=== PATIENT | female | born 1960 | race Caucasian/White ===

== ENCOUNTER 2016-11-22 06:59 | Inpatient (IN) | payer OTHER ==
[2016-11-22] MEDS ORDERED: Ondansetron HCl/PF 4 MG/2 ML Vial ONE ×2 (07:02→09:58)
[2016-11-22] MEDS ORDERED: Dicyclomine HCl 20 mg/2 ml Ampule ONE (07:36)
[2016-11-22 07:49] LABS: Hematocrit 49.1 % (36.0-47.0); Mean Platelet Volume 7.4 fL (7.4-10.4); Red Blood Cell (RBC) Count 5.36 mill/uL (4.20-5.40); White Blood Cell (WBC) Count 21.9 thou/uL (4.8-10.8)
[2016-11-22 08:03] LABS: Band 14 % (5-11); Neutrophil 66 % (42-75); Reactive Lymphocytes 3 % (0-10)
[2016-11-22 08:06] LABS: Lactic Acid - Sepsis 3.8 mmol/L (0.5-2.2)
[2016-11-22 08:15] LABS: ALT (SGPT) 66 U/L (8-55); AST (SGOT) 102 U/L (5-34); Alkaline Phosphatase 169 U/L (40-150); Anion Gap 19 mmol/L (10-20); BUN (Urea Nitrogen) 17 mg/dL (9.8-20.1); Bilirubin, Total 0.9 mg/dL (0.2-1.2); Calc. Creatinine Clearance 0 mL/min (70-130); Calcium 10.8 mg/dL (7.8-10.44); Carbon Dioxide 19 mmol/L (22-29); Chloride 101 mmol/L (98-107); Estimated GFR-MDRD 57; Globulin 3.6 g/dL (2.4-3.5); Lipase 26 U/L (8-78)
--- NOTE | 2016-11-22 10:41 | CT ---
CT OF THE ABDOMEN AND PELVIS WITH CONTRAST: Date: 11/22/16 COMPARISON: None. HISTORY: Right lower quadrant abdominal pain and fever. TECHNIQUE: Multiple contiguous axial images were obtained in a CT of the abdomen and pelvis with contrast. Juwan nal reformats were performed. FINDINGS: There are stranding changes surrounding the cecum and in the right lower quadrant of the abdomen. Th ere is inflammatory change of the terminal ileum. There is a structure between the terminal ileum an d cecum which may represent the patient's appendix, which is inflamed and enlarged. No free air is s een in the abdomen or pelvis. There are distended loops of small bowel without definite transition p oint. These measure up to 4.0 cm in size and are most likely secondary to an ileus. The colon is dec ompressed and contains a few scattered diverticula. There are a few focally enlarged areas of colon which are low density and likely represent areas of colon-containing fluid near the splenic flexure. The patient is status post cholecystectomy. The liver, kidneys, adrenal glands, spleen, and pancreas are unremarkable. No abdominal or pelvic lymphadenopathy are seen. The reproductive organs are unre markable. The osseous structures, visualized inferior thorax, and abdominal wall soft tissues are unremarkable . IMPRESSION: 1. There is inflammatory change in the right lower quadrant of the abdomen involving the cecum, ter cruz ileum, and a structure which is likely the appendix. This could be secondary to acute appendic itis. This could also be secondary to Crohn's disease. Correlate with white blood cell count. 2. Diverticulosis. 3. Dilated small bowel loops are likely secondary to a small bowel ileus. POS: [facility]
[2016-11-22] MEDS ORDERED: metroNIDAZOLE 500 MG/100 ML BAG ONE (11:25)
[2016-11-22] MEDS ORDERED: Ondansetron HCl/PF 4 MG/2 ML Vial IVP PRN ×2 (12:20→12:38)
[2016-11-22] MEDS ORDERED: Ondansetron ODT 4 MG TAB PO PRN (12:21)
[2016-11-22] MEDS ORDERED: Sodium Chloride 0.9% 1,000 ML IV SCH (12:30)
[2016-11-22] MEDS ORDERED: Dextrose 5% in Water 1,000 ML IV PRN (12:38)
[2016-11-22] MEDS ORDERED: Acetaminophen 325 MG TAB PO PRN (12:38)
[2016-11-22] MEDS ORDERED: Bisacodyl 5 MG TAB PO PRN (12:38)
[2016-11-22] MEDS ORDERED: Morphine Sulfate 2 MG/ML SYRINGE SLOW IVP PRN (12:38)
[2016-11-22] MEDS ORDERED: HYDROcodone/Acetaminophen 5/325 mg Tablet PO PRN (12:38)
[2016-11-22] MEDS ORDERED: HumaLOG 300 UNITS/3 ML VIAL SC PRN (12:38)
[2016-11-22] MEDS ORDERED: Promethazine HCl 25 MG/ML VIAL IM/IV PRN (12:38)
[2016-11-22] MEDS ORDERED: Dextrose 50% Abboject 50 ML SYRINGE SLOW IVP PRN (12:38)
[2016-11-22] MEDS ORDERED: Calcium Carbonate 500 MG ChewTAB PO PRN (12:38)
[2016-11-22 12:57] VITALS: BMI 39.3
[2016-11-22] MEDS ORDERED: Promethazine HCl 12.5 MG in Sodium Chloride 0.9% 50 ML IVPB PRN (13:00)
[2016-11-22] MEDS: Sodium Chloride 0.9% 1,000 ML IV SCH (13:25)
[2016-11-22] MEDS ORDERED: metroNIDAZOLE 500 MG in Premix Bag 1 BAG IVPB SCH (14:00)
--- NOTE | 2016-11-22 15:49 | CON ---
DATE OF CONSULTATION: 11/22/2016 REQUESTING PHYSICIAN: Kannan Ruiz M.D. HISTORY OF PRESENT ILLNESS: A 56-year-old woman with known history of Crohn's disease who presents with episode of multiple loose stools associated with multiple nonbilious emesis overnight. The patient had some vague abdominal pain associated with above symptoms. She denies any fevers or chills. She denies any hematochezia or melena. She denies any hematemesis. At the time of my evaluation, her pain is nearly resolved. She has not had any further diarrhea since admission. She currently has no nausea, had been taking some antiemetics hours ago. She in fact is hungry and wants something to eat. PAST MEDICAL HISTORY: Significant for Crohn's disease, rheumatoid arthritis, type 2 diabetes mellitus, essential hypertension, obstructive sleep apnea, hypothyroidism, and obesity. PAST SURGICAL HISTORY: Pertinent for multiple arthroplasties of both ankles, feet, right hand and both knees. She also has had a previous laparoscopic cholecystectomy. SOCIAL HISTORY: Patient denies any cigarette smoking, ethanol or illicit drug abuse. FAMILY HISTORY: Notable for heart disease, diabetes mellitus, and breast carcinoma. PREHOSPITALIZATION MEDICATIONS: Includes methotrexate 2.5 mg p.o. q. week, amlodipine 5 mg p.o. daily, levothyroxine 200 mcg p.o. daily, losartan 50 mg p.o. b.i.d., folic acid 2 mg p.o. daily, vitamin D3 5000 units p.o. daily. She is currently on ciprofloxacin and aztreonam intravenously. ALLERGIES: PENICILLIN. REVIEW OF SYSTEMS: Ten-point review of systems essentially unremarkable except for as stated in past medical history and chief complaint. PHYSICAL EXAMINATION: GENERAL: This reveals a 56-year-old normally developed woman who is otherwise coherent and interactive and appears stated age. The patient is alert and oriented x3. She appears to be in no acute distress at the time of my evaluation. VITAL SIGNS: Currently includes blood pressure 138/93, pulse is 96, respiration 20, temperature is 98.5 degrees Fahrenheit, oxygen saturation is 98 % on room air. HEENT: Examination reveals normocephalic and atraumatic. Pupils are equal, round, and reactive to light and accommodation. Extraocular muscles are intact bilaterally. No sclerae icterus is present. HEART: Reveals regular rate and rhythm, no murmurs or gallops auscultated. LUNGS: Clear to auscultation bilaterally. Breathing is regular and unlabored. ABDOMEN: Soft with mild right lower quadrant tenderness to palpation. She clearly has no gross peritoneal signs on examination. Liver and spleen are nonpalpable below costal margins. Bowel sounds in all four quadrants appear normoactive. EXTREMITIES: Reveals 2+ radial and pedal pulses bilaterally. No ankle edema is present. NEUROLOGIC: Examination reveals no focal deficits present. LABORATORY DATA AND IMAGIN. Pertinent laboratory findings today include CBC with 21,900 white blood cells, hemoglobin 16.2, hematocrit is 49.1, and platelet count is 416,000. 2. Metabolic profile: Sodium 135, potassium is 4.4, chloride is 101, bicarbonate 19, BUN 17, creatinine is 1.01, glucose 211. Lactic acid which was initially 3.8 at 0700 hours was 1.4 at 11:37 a.m. 3. Total bilirubin 0.9, AST and ALT marginally elevated at 102 and 66 respectively. 4. C-reactive protein is 7.9. Alkaline phosphatase elevated at 169. Serum lipase was normal at 26. 5. I have personally reviewed the CT scan of the abdomen and pelvis which is remarkable for significant inflammation involving the terminal ileum, cecum and possibly the appendix. There is no free air or significant free fluid noted. IMPRESSION: Acute abdominal pain secondary to colitis. There is no clinical evidence of acute appendicitis in this patient. RECOMMENDATIONS: 1. Continue medical management including antibiotic therapy and possibly anti- inflammatory, Crohn's specific medical therapy. 2. There is no acute surgical indication for this patient at this time. 3. We will initiate a clear liquid diet which will be advanced by morning if the clear liquid diet is well tolerated. Thank you again, Dr. Ruiz for allowing me the opportunity to participate in the care of this patient. KISHA
[2016-11-22] MEDS: Aztreonam 1 GM in Sodium Chloride 0.9% 100 ML IVPB SCH (16:18)
--- NOTE | 2016-11-22 16:56 | HP ---
PRIMARY CARE PHYSICIAN: Fátima Lara M.D. VOCATIONAL TRAINING TEACHER: Vidal Dexter M.D. GASTROINTESTINAL SPECIALIST: Josue Ivan M.D. CHIEF COMPLAINT: Nausea, vomiting, diarrhea, fever. HISTORY OF PRESENT ILLNESS: This is a 56-year-old pleasant lady with a history of Crohn's disease, recently diagnosed 6 weeks back comes into the hospital with episode of nausea, vomiting, fever, and diarrhea. She was apparently well until yesterday afternoon when she had attended a [facility] and s tarted having nausea and vomiting. After that yesterday evening, she had a fever of 101 and during the night, she developed episodes of diarrhea, because nothing resolved she came into the hospital f or further evaluation and treatment. CT scan of the abdomen was done which showed inflammatory rudd ges in the right lower quadrant involving the terminal ileum, cecum and possible inflammation of the appendix. She has been admitted for further evaluation and treatment of that and to rule out appen dicitis. Patient denies any chills, chest pain, shortness of breath. PAST MEDICAL HISTORY: Significant for juvenile rheumatoid arthritis which is progression to adult r heumatoid arthritis, type 2 diabetes, hypertension, sleep apnea, morbid obesity, hypothyroidism, bli nd in the right eye. PAST SURGICAL HISTORY: Significant for multiple synovectomy related to arthritis including right [place] nd, laparoscopic cholecystectomy 2 years ago and ankle surgery and knee surgery. MEDICATIONS: Include methotrexate, Remicade, amlodipine, levothyroxine, losartan, folic acid, vitam in D. ALLERGIES: PENICILLIN and CUPRIMINE. She is also allergic to ARAVA, which gives her ulcers on the hand and she is mildly allergic to METHOTREXATE, so she takes at low dose. She is off the PREDNISON E. SOCIAL HISTORY: She is with no children. 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 She does not smoke and drinks alcohol rarely. FAMILY HISTORY: Negative for diabetes and hypertension. REVIEW OF SYSTEMS: Significant for nausea, vomiting, diarrhea, and fever. Otherwise, no headache, no eye pain, no hearing loss latencies. No cough, no chest pain, no dysuria, no polyuria, no memory or mood changes. No neck pain. PHYSICAL EXAMINATION: VITAL SIGNS: Blood pressure is 105/84, pulse is 94, respirations 20, temperature afebrile. GENERAL: Patient is lying in bed in distress because of the nausea and vomiting. HEENT: Atraumatic, normocephalic. Pupils equally round, react to light. Extraocular movements int act. Mucous membranes moist. NECK: Supple. No JVD. CHEST: Breath sounds. There are no rales or rhonchi. HEART: S1, S2, no murmurs or gallops. ABDOMEN: Soft, tender diffusely, more in the periumbilical area. Bowel sounds are normal, no rigid ity, no guarding. EXTREMITIES: No cyanosis, clubbing or edema. Distal pulses present. NEUROLOGIC: Alert, awake, oriented. No cranial deficits. No sensorimotor deficits. IMAGING: CT scan as mentioned earlier showed inflammatory changes in the right lower quadrant of th e abdomen along the cecum, terminal ileum and stricture which is likely appendix, possibly acute jessica endicitis, also shows diverticulosis and dilated small bowel loops, possibly leading to small bowel ileus. LABORATORY DATA: WBC count is 21, hemoglobin is 16. The patient has neutrophils of 66, bands of 14 , lymphocytes of 10. Sodium is 135, potassium is 4.4, creatinine is 1.01, BUN is 17, lactic acid is 3.8. AST is 102, ALT is 66, alkaline phosphatase is 169. ASSESSMENT AND PLAN: 1. Sepsis secondary to right lower quadrant inflammation, rule out appendicitis. We will do blood cultures, monitor. We will repeat lactic acid. We will treat the patient with Cipro, Flagyl, and Z osyn. 2. Nausea, vomiting, diarrhea, possibly secondary to the inflammation. We will give symptomatic tr eatment with Zofran and Phenergan. We will also check the patient for stool cultures and Clostridiu m difficile. 3. Rheumatoid arthritis, appears to be stable as of now. 4. Crohn's disease. We will consult GI. 5. History of asthma, stable. 6. Ileus, possibly secondary to inflammation. We will monitor the patient closely. 7. Fever with elevated white count, possibly secondary to sepsis. 8. Diabetes. Put the patient on insulin sliding scale. 9. Hypertension. We will do p.r.n. hydralazine. 10. Obesity. She has been counseled. 11. Increased LFTs, possibly secondary to sepsis. We will do ultrasound of the gallbladder anyway to rule out any common bile duct obstruction. 12. Hypothyroidism. We will continue thyroid medication for now. 13. Sequential compression devices for deep venous thrombosis prophylaxis. I will work with Diego falcon and TIESHA and further caring for the patient.
--- NOTE | 2016-11-22 18:17 | ULT ---
ULTRASOUND ABDOMEN COMPLETE: HISTORY: 66-year-old female with elevated liver enzymes, abdominal pain, nausea and emesis. FINDINGS: Liver: Heterogeneously increased echogenicity consistent with fatty liver. Gallbladder: Surgically absent. Common duct: 5 mm Spleen: No splenomegaly. Pancreas: Poorly visualized. Kidneys: No hydronephrosis. Abdominal aorta: No aneurysm. Inferior vena cava: Unremarkable. IMPRESSION: 1. Hepatosteatosis. 2. Status post cholecystectomy. MADISON Duvall POS: [facility]
--- NOTE | 2016-11-22 19:36 | CON ---
DATE OF CONSULTATION: 11/22/2016 REASON FOR CONSULTATION: Diarrhea, vomiting, abdominal pain. HISTORY OF PRESENT ILLNESS: Ms. Morales is a pleasant 56-year-old female, who has had a long history of rheumatoid disease, which has been very difficult to control. She has been on multiple immunosu ppressants as more recently Rituxan. In May of last year, she underwent colorectal cancer screeni ng with a colonoscopy was felt to be normal except for lipoma on the right colon. The appendiceal o rifice, ileocecal valve, and cecum all appeared normal at that time. More recently, she had been ev aluated for worsening lower quadrant pain and had a CAT scan that showed inflammation in the cecal a nd terminal ileum area. Interestingly, she had been in the hospital for similar findings on the CT in 11/2014 as well as gastroenteritis. She had [employer] [facility] obtained for inflammatory carlos alberto l disease that was consistent with ulcerative colitis. She had a colonoscopy, which showed severe i nflammation in the right colon and biopsies showed chronic inflammation, but no evidence of infectio n. Screening for hepatitis C and hepatitis were all negative. In talking with her senior gis analyst, we started her on Remicade. She started that a week and a half ago and she actually had been doing quite well. 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 She came to the emergency room last night, had a white count of 21,000 and was admit megha to the hospital. She had a calcium of 10.8, lactic acid 3.8, AST and ALT of 102 and 66, alkalin e phosphatase 169. C-reactive protein is 7.9. test was negative. She had a CAT scan sandro t showed similar inflammation in the right lower quadrant. I talk to Dr. Juan, the radiologist who has compared to the CAT scan she had in September at [facility] and actually it looks better than then. There is still some inflammation in the right lower quadrant of the abdomen, the cecum and t erminal ileum stricture in the terminal ileum ileocecal valve region. There is no evidence of acute appendicitis and the changes look better than before; however, there is increasing small carlos alberto l dilatation distally that was seen on last exam; this was felt to be ileus or obstruction. REVIEW OF SYSTEMS: Fever of 101, she states yesterday, otherwise negative for rash. Negative for d ysuria. Frequency and urgency negative. Positive for nausea, vomiting, diarrhea without any blood and some diffuse abdominal discomfort. PAST MEDICAL HISTORY: 1. New diagnosis which felt to be Crohn disease. 2. Chronic rheumatoid arthritis. 3. Endocrine disease. 4. Hypothyroidism. 5. 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 She has been off for several months now. 6. Hypertension. 7. Obesity. 8. Pulmonary disease, asthma. PAST SURGICAL HISTORY: Orthopedic surgery, bilateral knee replacements, bilateral ankle surgery, fo ot surgery, right hand surgery, previous cholecystectomy. ALLERGIES: CUPRIMINE (PENICILLAMINE), PENICILLINS. SOCIAL HISTORY: Negative for alcohol, drugs or tobacco. MEDICATIONS AT HOME: Methotrexate, amlodipine, levofloxacin, losartan, folic acid, vitamin D3, and Remicade. PRESENT MEDICATIONS HERE: Tylenol, aztreonam, bisacodyl, Cipro, famotidine, hydralazine, hydrocodon e, insulin sliding scale, levothyroxine, metronidazole, normal saline 100 an hour. PHYSICAL EXAMINATION: VITAL SIGNS: Temperature is 98.5, pulse 96, blood pressure 130/93. She is mildly overweight. GENERAL: She is in no distress. LUNGS: Clear. HEART: Regular rate and rhythm without clicks or murmurs. ABDOMEN: Soft, nontender, without any palpable hepatosplenomegaly. There is mild tenderness in the right lower abdomen. ASSESSMENT: History of Crohn's, recently started on Remicade; now admitted with fever, nausea, vomi ting, diarrhea, and leukocytosis. CAT scan shows appearance improved from the CAT scan in September. This all started abruptly yesterday after eating out at a latter-day function. I suspect this was an ac [place] gastritis. She is on immunosuppressants and does have Crohn's and that is always a concern as w twila. We will continue the antibiotics, IV fluids, and observe her. If she has worsening symptoms, may have to reevaluate by Surgery. I suspect the ileus/obstruction appearance with dilated loops of small bowel with more of an ileus, but again if she has worsening symptoms, she may be reevaluated by General Surgery. Previously she does not have improvement in the clinical course as expected wit h the acute food borne gastroenteritis, then we would need to check for opportunistic infections inc lude TB, CMV, and Entamoeba histolytica and histoplasmosis based on her extensive immunosuppressants in the past.
[2016-11-22] MEDS: Famotidine/PF 20 mg/2ml Vial SLOW IVP SCH (20:32)
[2016-11-22] MEDS: metroNIDAZOLE 500 MG in Premix Bag 1 BAG IVPB SCH (20:32)
[2016-11-23] MEDS: Aztreonam 1 GM in Sodium Chloride 0.9% 100 ML IVPB SCH (00:54)
[2016-11-23] MEDS: Sodium Chloride 0.9% 1,000 ML IV SCH ×4 (00:56→23:31)
[2016-11-23] MEDS: metroNIDAZOLE 500 MG in Premix Bag 1 BAG IVPB SCH ×3 (04:49→21:17)
[2016-11-23] MEDS ORDERED: Levothyroxine Sodium 100 MCG VIAL IVP SCH (06:00)
[2016-11-23] MEDS ORDERED: Levothyroxine Sodium 100 MCG TAB PO SCH (06:00)
[2016-11-23 06:12] LABS: #Basophils 0.1 thou/uL (0.0-0.2); #Eosinphils 0.5 thou/uL (0.0-0.7); #Lymphocytes 2.2 thou/uL (1.20-3.40); #Neutrophils 5.4 thou/uL (1.40-6.50); %Basophils 0.7 % (0.0-1.0); %Lymphocytes 23.4 % (21.0-51.0); Hematocrit 41.8 % (36.0-47.0); Mean Platelet Volume 7.4 fL (7.4-10.4); Red Blood Cell (RBC) Count 4.48 mill/uL (4.20-5.40); White Blood Cell (WBC) Count 9.2 thou/uL (4.8-10.8)
[2016-11-23 06:25] LABS: ALT (SGPT) 38 U/L (8-55); AST (SGOT) 26 U/L (5-34); Alkaline Phosphatase 116 U/L (40-150); Anion Gap 13 mmol/L (10-20); BUN (Urea Nitrogen) 13 mg/dL (9.8-20.1); Bilirubin, Total 0.4 mg/dL (0.2-1.2); Calc. Creatinine Clearance 134 mL/min (70-130); Carbon Dioxide 21 mmol/L (22-29); Chloride 108 mmol/L (98-107); Estimated GFR-MDRD 83; Globulin 2.6 g/dL (2.4-3.5); Protein, Total 5.8 g/dL (6.0-8.3)
[2016-11-23] MEDS: Saccharomyces boulardii 250 MG CAP PO SCH (08:55)
[2016-11-23] MEDS: Cyanocobalamin (Vitamin B-12) 1,000 MCG TAB PO SCH (08:56)
[2016-11-23] MEDS: Losartan Potassium 25 MG TAB PO SCH ×2 (08:56→21:24)
[2016-11-23] MEDS: Famotidine/PF 20 mg/2ml Vial SLOW IVP SCH ×2 (08:58→21:27)
[2016-11-23] MEDS ORDERED: Folic Acid 1 MG TAB PO SCH (09:00)
[2016-11-23] MEDS ORDERED: Non-Formulary Item 1 EACH (Levothyroxine Sodium [Synthroid] 200 MCG) PO SCH (09:00)
[2016-11-23] MEDS ORDERED: Non-Formulary Item 1 EACH (Cyanocobalamin (Vitamin B-12) [Vitamin B12] 2,500 MCG) PO SCH (09:00)
[2016-11-23] MEDS ORDERED: Non-Formulary Item 1 EACH (Cholecalciferol (Vitamin D3) [Vitamin D3] 5,000 UNIT) PO SCH (09:00)
[2016-11-23] MEDS ORDERED: Non-Formulary Item 1 EACH (Losartan Potassium [Losartan Potassium] 50 MG) PO SCH (09:00)
[2016-11-23] MEDS ORDERED: Methotrexate Sodium 2.5 MG TAB PO SCH (09:00)
--- NOTE | 2016-11-23 11:37 | PDOC.PN ---
- Subjective Encounter Start Date: 11/23/16 Encounter Start Time: 07:30 -: old records requested/rev pt feels better, no abdominal pain, has diarrhoea, no fever - Objective MAR Reviewed: Yes Vital Signs & Weight: Vital Signs (12 hours) Temp Pulse Resp BP BP Pulse Ox 11/23/16 08:57 66 121/71 11/23/16 08:00 98.5 F 66 16 97 11/23/16 07:39 98.5 F 66 16 121/71 97 11/23/16 00:00 99 F 82 18 122/72 95 Weight Weight 214 lb 14.4 oz I&O: 11/22/16 11/23/16 11/24/16 06:59 06:59 06:59 Intake Total 1200 600 Balance 1200 600 Result Diagrams: 11/23/16 04:28 11/23/16 04:28 Additional Labs: Accuchecks 11/22/16 21:23 POC Glucose 132 H Phys Exam - Physical Examination Constitutional: NAD HEENT: PERRLA, moist MMs, sclera anicteric Neck: no JVD, supple Respiratory: no wheezing, no rales, no rhonchi Cardiovascular: RRR, no significant murmur, no rub Gastrointestinal: soft, non-tender, no distention, positive bowel sounds Musculoskeletal: no edema, pulses present Neurological: non-focal, normal sensation, moves all 4 limbs Lymphatic: no nodes Psychiatric: normal affect, A&O x 3 Skin: no rash, normal turgor Dx/Plan (1) Abdominal pain Code(s): R10.9 - UNSPECIFIED ABDOMINAL PAIN Status: Resolved (2) Diarrhea Code(s): R19.7 - DIARRHEA, UNSPECIFIED Status: Acute Qualifiers: Diarrhea type: presumed infectious Qualified Code(s): A09 - Infectious gastroenteritis and colitis, unspecified (3) Gastroenteritis Code(s): K52.9 - NONINFECTIVE GASTROENTERITIS AND COLITIS, UNSPECIFIED Status : Acute (4) Ileus Code(s): K56.7 - ILEUS, UNSPECIFIED Status: Acute (5) Lactic acidosis Code(s): E87.2 - ACIDOSIS Status: Acute (6) Leucocytosis Code(s): D72.829 - ELEVATED WHITE BLOOD CELL COUNT, UNSPECIFIED Status: Resolved (7) Nausea & vomiting Code(s): R11.2 - NAUSEA WITH VOMITING, UNSPECIFIED Status: Resolved (8) Sepsis Code(s): A41.9 - SEPSIS, UNSPECIFIED ORGANISM Status: Acute (9) Abnormal LFTs Code(s): R79.89 - OTHER SPECIFIED ABNORMAL FINDINGS OF BLOOD CHEMISTRY Status : Chronic (10) Arthritis, rheumatoid Code(s): M06.9 - RHEUMATOID ARTHRITIS, UNSPECIFIED Status: Chronic (11) Crohn's disease Code(s): K50.90 - CROHN'S DISEASE, UNSPECIFIED, WITHOUT COMPLICATIONS Status: Chronic (12) Diabetes type 2, controlled Code(s): E11.9 - TYPE 2 DIABETES MELLITUS WITHOUT COMPLICATIONS Status: Chronic (13) Hepatic steatosis Code(s): K76.0 - FATTY (CHANGE OF) LIVER, NOT ELSEWHERE CLASSIFIED Status: Chronic (14) Hypertension Code(s): I10 - ESSENTIAL (PRIMARY) HYPERTENSION Status: Chronic (15) Hypothyroidism Code(s): E03.9 - HYPOTHYROIDISM, UNSPECIFIED Status: Chronic (16) Obesity (BMI 30-39.9) Code(s): E66.9 - OBESITY, UNSPECIFIED Status: Chronic - Plan cont current plan of care, continue antibiotics * wbc improved to normal * change to levaquin, DC azactam * continue flagyl * add florastor * will repeat c-diff * spoke with GI and continue current treatment plan * medication reviewed as below * symptomatic treatment. * advance diet Review of Systems - Review of Systems Eyes: negative: Pain, Vision Change, Conjunctivae Inflammation, Eyelid Inflammation, Redness, Other ENT: negative: Ear Pain, Ear Discharge, Nose Pain, Nose Discharge, Nose Congestion, Mouth Pain, Mouth Swelling, Throat Pain, Throat Swelling, Other Respiratory: negative: Cough, Dry, Shortness of Breath, Hemoptysis, SOB with Excertion, Pleuritic Pain, Sputum, Wheezing Cardiovascular: negative: Chest Pain, Palpitations, Orthopnea, Paroxysmal Noc. Dyspnea, Edema, Light Headedness, Other Gastrointestinal: Diarrhea. negative: Nausea, Vomiting, Abdominal Pain, Constipation, Melena, Hematochezia, Other Genitourinary: negative: Dysuria, Frequency, Incontinence, Hematuria, Retention , Other Musculoskeletal: negative: Neck Pain, Shoulder Pain, Arm Pain, Back Pain, Hand Pain, Leg Pain, Foot Pain, Other Skin: negative: Rash, Lesions, Mal, Bruising, Other - Medications/Allergies Allergies/Adverse Reactions: Allergies Allergy/AdvReac Type Severity Reaction Status Date / Time penicillamine Allergy Severe "throat Verified 11/22/16 12:56 [From Cuprimine] swelled, hives" Penicillins Allergy Severe "face Verified 11/22/16 12:56 swelled up" Medications: Current Medications Acetaminophen (Tylenol) 650 mg PO Q4H PRN PRN Reason: Headache/Fever or Pain Hydrocodone Bitart/Acetaminophen (Ignacio 5/325) 1 tab PO Q4H PRN PRN Reason: Moderate Pain (4-6) Last Admin: 11/23/16 00:56 Dose: 1 tab Amlodipine Besylate (Norvasc) 5 mg PO QAM [facility] Last Admin: 11/23/16 08:57 Dose: 5 mg Bisacodyl (Dulcolax) 10 mg PO DAILYPRN PRN PRN Reason: Constipation Calcium Carbonate (Tums) 1,000 mg PO Q4H PRN PRN Reason: Heartburn or Indigestion Cholecalciferol (Vitamin D3) 5,000 units PO DAILY [facility] Last Admin: 11/23/16 08:56 Dose: 5,000 units Cyanocobalamin (Vitamin B-12) 2,500 mcg PO DAILY [facility] Last Admin: 11/23/16 08:56 Dose: 2,500 mcg Dextrose/Water (Dextrose 50%) 25 gm SLOW IVP PRN PRN PRN Reason: Hypoglycemia Famotidine (Pepcid) 20 mg SLOW IVP Q12HR [facility] Last Admin: 11/23/16 08:58 Dose: 20 mg Folic Acid (Folvite) 1 mg PO DAILY [facility] Last Admin: 11/23/16 08:58 Dose: Not Given Glucagon (Glucagon) 1 mg IM PRN PRN PRN Reason: Hypoglycemia Hydralazine HCl (Apresoline) 10 mg SLOW IVP Q4H PRN PRN Reason: Systolic BP > 180 Ciprofloxacin/Dextrose 400 mg/ (Device) 200 mls @ 200 mls/hr IVPB 0200,1400 [facility] Last Admin: 11/23/16 00:54 Dose: 200 mls Dextrose/Water (D5w) 1,000 mls @ 0 mls/hr IV .Q0M PRN; As Directed PRN Reason: Hypoglycemia Sodium Chloride (Normal Saline 0.9%) 1,000 mls @ 100 mls/hr IV .Q10H [facility] Stop: 11/24/16 12:39 Last Admin: 11/23/16 08:57 Dose: Not Given Promethazine HCl 12.5 mg/ (Sodium Chloride) 50.5 mls @ 202 mls/hr IVPB Q6H PRN PRN Reason: Nausea Last Admin: 11/22/16 13:30 Dose: 50.5 mls Metronidazole 500 mg/ Device 100 mls @ 100 mls/hr IVPB 0400,1200,2000 [facility] Stop: 11/25/16 20:01 Last Admin: 11/23/16 04:49 Dose: 100 mls Levofloxacin 500 mg/ Device 100 mls @ 100 mls/hr IVPB Q24HR [facility] Last Admin: 11/23/16 08:55 Dose: 100 mls Insulin Human Lispro (Humalog) 0 units SC .MILD SLIDING SCALE PRN PRN Reason: Mild Correctional Scale Levothyroxine Sodium (Synthroid) 200 mcg PO 0600 [facility] Losartan Potassium (Cozaar) 50 mg PO BID [facility] Last Admin: 11/23/16 08:56 Dose: 50 mg Methotrexate Sodium (Methotrexate Sodium) 2.5 mg PO Q7D [facility] Last Admin: 11/23/16 09:15 Dose: 2.5 mg Morphine Sulfate (Morphine Sulfate) 1 mg SLOW IVP Q4H PRN PRN Reason: Severe Pain (7-10) Stop: 11/23/16 12:39 Ondansetron HCl (Zofran) 4 mg IVP Q6H PRN PRN Reason: Nausea/Vomiting Promethazine HCl (Phenergan) 12.5 mg IM/IV Q6H PRN PRN Reason: Nausea/Vomiting Saccharomyces Boulardii (Florastor) 250 mg PO DAILY [facility] Last Admin: 11/23/16 08:55 Dose: 250 mg Sodium Chloride (Flush - Normal Saline) 10 ml IVF Q12HR [facility] Last Admin: 11/23/16 09:05 Dose: Not Given Sodium Chloride (Flush - Normal Saline) 10 ml IVF PRN PRN PRN Reason: Saline Flush
--- NOTE | 2016-11-23 14:34 | PRG ---
DATE OF SERVICE: 11/23/2016 Ms. Morales feels better. She is having no vomiting, no diarrhea, no pain. PHYSICAL EXAMINATION: VITAL SIGNS: Temperature 98, pulse 86, blood pressure 121/71. HEENT: Oropharynx without lesions. NECK: Supple, without adenopathy. LUNGS: Clear. CARDIAC: Heart is regular rate and rhythm without clicks or murmurs. LABORATORY STUDIES: White count down to 9.2, hemoglobin 13, platelet count 306. Electrolytes xiomara l. C. diff antigen positive, toxin negative, innervation Escherichia coli negative. Shiga toxin ne gative. Campylobacter negative, culture pending. Blood culture pending. ASSESSMENT: 1. Acute onset of diarrhea and vomiting. This is likely true foodborne related illness. This occu rred an hour or so after attending a [facility]. 2. Crohn's, overtly improved by CAT scan. 3. Leukocytosis, resolved. 4. Vomiting, resolved. 5. Diarrhea, she had one loose stool this morning. RECOMMENDATIONS: Advance diet to a low residue as tolerated. Agree with discontinuing the aztreona m and Cipro. Continue saccharomyces boulardii. It would be reasonable to continue the Flagyl and g flaquito her some Levaquin. Hopefully she will be able to go home later today or tomorrow.
[2016-11-23] MEDS: LOSARTAN 50 MG TAB PO SCH (21:28)
[2016-11-24] MEDS: metroNIDAZOLE 500 MG in Premix Bag 1 BAG IVPB SCH ×2 (05:03→11:02)
[2016-11-24] MEDS: Sodium Chloride 0.9% 1,000 ML IV SCH (05:04)
[2016-11-24 05:42] LABS: #Eosinphils 0.6 thou/uL (0.0-0.7); #Lymphocytes 2.2 thou/uL (1.20-3.40); #Monocytes 0.9 thou/uL (0.11-0.59); #Neutrophils 4.8 thou/uL (1.40-6.50); %Basophils 0.3 % (0.0-1.0); %Eosinophils 7.6 % (0.0-10.0); %Lymphocytes 25.8 % (21.0-51.0); Mean Platelet Volume 7.8 fL (7.4-10.4); Red Blood Cell (RBC) Count 4.26 mill/uL (4.20-5.40); White Blood Cell (WBC) Count 8.6 thou/uL (4.8-10.8)
[2016-11-24 05:52] LABS: ALT (SGPT) 24 U/L (8-55); AST (SGOT) 15 U/L (5-34); Alkaline Phosphatase 99 U/L (40-150); Anion Gap 12 mmol/L (10-20); BUN (Urea Nitrogen) 10 mg/dL (9.8-20.1); Bilirubin, Total 0.2 mg/dL (0.2-1.2); Calc. Creatinine Clearance 132 mL/min (70-130); Carbon Dioxide 22 mmol/L (22-29); Chloride 108 mmol/L (98-107); Estimated GFR-MDRD 81; Globulin 2.4 g/dL (2.4-3.5); Protein, Total 5.5 g/dL (6.0-8.3)
[2016-11-24] MEDS ORDERED: Levothyroxine Sodium 100 MCG TAB PO SCH (06:00)
[2016-11-24] MEDS ORDERED: LEVOTHYROXINE 200 MCG TAB PO SCH (06:00)
[2016-11-24] MEDS: Saccharomyces boulardii 250 MG CAP PO SCH (07:52)
[2016-11-24] MEDS: Famotidine/PF 20 mg/2ml Vial SLOW IVP SCH (07:53)
[2016-11-24] MEDS: LOSARTAN 50 MG TAB PO SCH (07:54)
[2016-11-24 08:10] VITALS: BP 144/86; TEMP 98.6
[2016-11-24] MEDS: Cyanocobalamin (Vitamin B-12) 1,000 MCG TAB PO SCH (08:11)
[2016-11-24] MEDS ORDERED: FOLIC ACID 1 MG TAB PO SCH (09:00)
[2016-11-24] MEDS ORDERED: AMLODIPINE 5 MG TAB PO SCH (09:00)
--- NOTE | 2016-11-24 10:32 | DIS ---
PRIMARY CARE PHYSICIAN: Dr. Mars Lott DATE OF ADMISSION: 11/22/2016 DATE OF DISCHARGE: 11/24/2016 DISCHARGE DISPOSITION: Home. PRIMARY DISCHARGE DIAGNOSES: 1. Acute colitis, presumed infectious. 2. Clostridium difficile antigen positive, toxin negative, ileus resolved. Lactic acidosis, resolv ed, sepsis resolved. Nausea, vomiting, leukocytosis and abdominal pain, improved. 3. Abnormal liver function tests due to fatty liver. SECONDARY DISCHARGE DIAGNOSES: Rheumatoid arthritis, Crohn's disease, diabetes type 2, hypertension , hypothyroidism, obesity with BMI 39. Hypothyroidism. PRIMARY PROCEDURE/OPERATION: None. RADIOLOGICAL INVESTIGATION: Abdomen and pelvis CT scan showed colitis, diverticulosis, dilated smal l bowel due to ileus. Abdomen ultrasound showed fatty liver. SIGNIFICANT LABS: WBC 8.6, hemoglobin 12.4, platelets 292. Sodium 138, potassium 4.1, creatinine 0 .74. Electrolytes, LFTs normal. Stool for infection workup showed C. diff antigen positive and tox in negative. Blood culture negative. DISCHARGE MEDICATIONS: New medication, Florastor 250 mg p.o. daily, Flagyl 500 mg p.o. t.i.d. for 1 0 days. Continue following medications: Vitamin D3 5000 units p.o. daily, vitamin B12 2500 mcg p.o . daily, folic acid 1 mg p.o. daily, Synthroid 200 mcg p.o. daily, losartan 50 mg p.o. daily, methot rexate 2.5 mg p.o. every 7 days, Norvasc 5 mg p.o. daily. PRIMARY PROCEDURE/OPERATION: None. CONTRAINDICATIONS: None. CODE STATUS: FULL CODE. INPATIENT CONSULTANTS: Dr. Parada was consulted and he recommended to treat medically. There was no surgical indication for any kind of surgical treatment. Dr. Ivan was suspecting full blown relat ed gastroenteritis. TEST RESULTS PENDING ON DISCHARGE: None. ALLERGIES: PENICILLIN. DISCHARGE PLAN: Post hospital, the patient will follow up with primary care physician and primary astroenterologist. HOSPITAL COURSE: A 56-year-old female who was admitted by Dr. Ruiz. The patient was having nausea, vomiting, diarrhea. She had leukocytosis. CT of the abdomen and pelvis showed inflammator y changes around cecum. This patient has underlying history of Crohn's disease and that is why we s uspected Crohn's flareup. We consulted balloon tester. There was concern of appendicitis and t hat is why Dr. Parada was also consulted. Patient also had a CT finding of small bowel dilatation, w hich was related with ileus. Patient had dramatic improvement with antibiotic therapy. We treated her with IV Levaquin and Flagy l and IV fluid. The next day, her leukocytosis improved. Her diarrhea resolved. Stool for infecti on workup showed C. diff antigen positive and toxin negative. The rest of workup is negative. At this point, we are only considering Flagyl upon discharge. This patient does not have any fever while in hospital and she is hemodynamically stable. The patient is seen and examined at bedside today. VITAL SIGNS: Currently, temperature 98.6, pulse 64, respiratory rate 18, saturation 96%, blood pres sure 144/86, weight 214 pounds. GENERAL: The patient is alert, awake, no acute distress. HEAD: Normocephalic, atraumatic. LUNGS: Clear to auscultation without any rhonchi. CARDIAC: S1, S2 regular without any murmur. ABDOMEN: Soft and benign. EXTREMITIES: No edema. NEUROLOGIC: Nonfocal examination.
== END 2016-11-24 11:07 | disposition home or self-care (01) | DRG 872 ==
LOC: ERS 06:59 → T4-A 12:13
PROVIDERS: ADMIT Internal Medicine; ATTEND Internal Medicine
DX: A41.9 Sepsis, unspecified organism (principal); E87.2 Acidosis; K50.90 Crohn's disease, unspecified, without complications; K56.7 Ileus, unspecified; E66.01 Morbid (severe) obesity due to excess calories; A09 Infectious gastroenteritis and colitis, unspecified; K76.0 Fatty (change of) liver, not elsewhere classified; Z68.39 Body mass index [BMI] 39.0-39.9, adult; G47.30 Sleep apnea, unspecified; M06.9 Rheumatoid arthritis, unspecified; E03.9 Hypothyroidism, unspecified; H54.61 Unqualified visual loss, right eye, normal vision left eye; I10 Essential (primary) hypertension; Z88.0 Allergy status to penicillin; Z79.899 Other long term (current) drug therapy; E11.9 Type 2 diabetes mellitus without complications
CPT/HCPCS: 36415; 36416; 74177; 76700; 80053; 83605; 83690; 84703; 85025; 86140; 87015; 87040; 87045; 87046; 87077; 87186; 87324; 87449; 87899; 93005; 96361; 96372; 96374; 96375; 96376; A4216; J0744; J1956; J2405; J2550; J3490; J7050; J8610; S0028

== ENCOUNTER 2017-04-06 13:07 | Outpatient (CLI) | payer OTHER ==
[2017-04-06] MEDS ORDERED: Sodium Chloride 0.9% 10 ML ONE (14:02)
--- NOTE | 2017-04-06 18:59 | MRI ---
MRI ABDOMEN WITH AND WITHOUT CONTRAST 04/06/17 HISTORY: R93.3 - abnormal finding on GI tract imaging. COMPARISON: CT abdomen and pelvis 11/22/16. FINDINGS: There is abnormal thickening and likely some strictural formation of the distal ileum for a length of approximately 7 cm. There is also some abnormal thickening and hyperenhancement of the cecal apex. T he previously seen small bowel dilatation is resolved. There are a few reactive lymph nodes. There is a small sinus tract seen along the anterior margin of the terminal ileum without definite fi stulization. There is stenosis of the terminal ileum. The liver, spleen, pancreas, are unremarkable. No intrahepatic or extrahepatic biliary dilatation. IMPRESSION: Active inflammation of the terminal ileum for a length of approximately nearly 10 cm with stricturing , short segment, as well as sinus tract formation without definite fistulization. There is also some mild inflammation and hyperenhancement of the wall of what appears to be the appendix. POS: ARDEN
== END 2017-04-06 13:08 | disposition home or self-care (01) ==
LOC: MRI 13:07
PROVIDERS: ATTEND Internal Medicine Gastroenterology
DX: K50.90 Crohn's disease, unspecified, without complications (principal); R93.3 Abnormal findings on diagnostic imaging of other parts of digestive tract; K56.690 Other partial intestinal obstruction
CPT/HCPCS: 74183; J1610

== ENCOUNTER 2017-05-31 13:30 | Inpatient (IN) | payer OTHER ==
[2017-06-02 16:47] VITALS: BMI 37.1
[2017-06-07] MEDS ORDERED: Fentanyl 100 MCG/2 ML VIAL ONE (10:52)
[2017-06-07] MEDS ORDERED: Midazolam HCl 2 mg/2 ml Vial ONE ×2 (10:52→12:02)
[2017-06-07] MEDS ORDERED: Dexamethasone 4 mg/ml Vial ONE (10:52)
[2017-06-07] MEDS ORDERED: Clindamycin/D5W 900 MG in Premix Bag 1 BAG IVPB SCH (11:00)
[2017-06-07] MEDS ORDERED: Indocyanine Green 25 MG/10 ML VIAL ONE (11:12)
[2017-06-07] MEDS ORDERED: Bupivacaine/Epinephrine 0.25% 30 ML VIAL ONE (11:12)
[2017-06-07] MEDS ORDERED: Clindamycin/D5W 900 mg/50 ml Premix Bag ONE (11:57)
[2017-06-07] MEDS ORDERED: Levofloxacin 500 mg/D5W 100 ml Premix Bag ONE (11:57)
[2017-06-07] MEDS ORDERED: Fentanyl 250 MCG/5 ML VIAL ONE (12:02)
[2017-06-07] MEDS ORDERED: Bupivacaine HCl 0.5%/Epinephrine 1:200,000/PF 30 ml Vial ONE ×2 (14:57)
[2017-06-07] MEDS ORDERED: Ondansetron HCl/PF 4 MG/2 ML Vial IVP PRN (15:08)
[2017-06-07] MEDS ORDERED: Promethazine HCl 25 MG/ML VIAL IM PRN ×2 (15:08→16:42)
[2017-06-07] MEDS ORDERED: Promethazine HCl 25 MG/ML VIAL SLOW IVP PRN (15:08)
[2017-06-07] MEDS ORDERED: Glycopyrrolate 0.2 MG/ML 5 ML SYRINGE ONE (15:16)
[2017-06-07] MEDS ORDERED: Ketorolac Tromethamine 30 MG/ML VIAL ONE (15:16)
[2017-06-07] MEDS ORDERED: Hydrocortisone Sod Succ/PF 100 mg/2 ml Vial ONE (15:16)
[2017-06-07] MEDS ORDERED: PHENYLEPHRINE-NS 100 MCG/ML 10 ML SYRINGE ONE (15:16)
[2017-06-07] MEDS ORDERED: Lidocaine 1% PF 5 ML VIAL ONE (15:16)
[2017-06-07] MEDS ORDERED: Labetalol 100 MG/20 ML MDV ONE (15:16)
[2017-06-07] MEDS ORDERED: PROPOFOL 200 MG/20 ML VIAL ONE (15:16)
[2017-06-07] MEDS ORDERED: Ondansetron PF 4 MG/2 ML Vial IVP PRN (16:42)
[2017-06-07] MEDS ORDERED: Fentanyl 100 MCG/2 ML VIAL SLOW IVP PRN ×2 (16:42)
[2017-06-07] MEDS ORDERED: hydrALAZINE 20 MG/ML VIAL SLOW IVP PRN (16:42)
[2017-06-07] MEDS: Sodium Chloride 0.9% 1,000 ML IV SCH (17:30)
[2017-06-07] MEDS: Acetaminophen 1,000 MG in Premix Bag 1 BAG IVPB SCH (18:20)
[2017-06-07] MEDS: Clindamycin/D5W 900 MG in Premix Bag 1 BAG IVPB SCH (18:20)
[2017-06-07] MEDS: Ketorolac Tromethamine 30 MG/ML VIAL IVP PRN (19:15)
[2017-06-07] MEDS: Famotidine 20 MG TAB PO SCH (21:32)
[2017-06-07] MEDS: Losartan 25 MG TAB PO SCH (21:32)
[2017-06-07] MEDS: Famotidine 40 MG/4 ML VIAL SLOW IVP SCH (21:33)
[2017-06-07] MEDS: Enoxaparin Sodium 40 MG/0.4 ML SYRINGE SC SCH (21:33)
--- NOTE | 2017-06-07 22:13 | OP ---
DATE OF PROCEDURE: 06/07/2017 PREOPERATIVE DIAGNOSIS: Crohn's disease with ileocecal stricture with near complete obstruction. PREOPERATIVE DIAGNOSIS: Crohn's disease with ileocecal stricture with near complete obstruction. PROCEDURE PERFORMED: Da Francisco J laparoscopic robotic right colectomy including terminal ileum. SURGEON: Dav Chavis M.D. ANESTHESIA: General. ESTIMATED BLOOD LOSS: 150 mL. COMPLICATIONS: None. SPECIMEN: Right colon. FINDINGS: Significant localized inflammatory reaction in the area of the ileocecal valve. BRIEF HISTORY: The patient is a 56-year-old female with a history of Crohn's disease, found to have a stricture and Crohn's disease of the terminal ileum associated with severe pain and obstructive sym ptoms. She is not currently on steroids. She is referred by Dr. Ivan for definitive resection. R isks, benefits, and alternatives were discussed. She underwent mechanical and antibiotic bowel prep. PROCEDURE IN DETAIL: The patient was taken to the operating room and placed supine on the table. Af ter general anesthetic was obtained, a Caraballo was placed. The abdomen was shaved, prepped, and draped in a sterile fashion. She has undergone preoperative TAP blocks by Anesthesia for postop pain contr ol. Left subcostal 5-mm Optiview trocar was placed in the usual fashion without injury and high-flow pneumoperitoneum was obtained. Robot camera port placed just to the left of the umbilicus. The 5-m m subcostal port was switched out to the 15-mm robot stapler port. Assist port was placed in left la teral upper abdomen. Robot port was placed in the left lower quadrant. The surgeon goes to the cons ole. The patient had been placed in Trendelenburg position and all ports were docked to the robot. The right colon was mobilized along the white line of Toldt it then flipped over and medially on the mesentery was incised at the base of the ileocolic artery. The ileocolic artery was taken near its b ase using the vessel sealer. Vessel sealer was then used to transect the small bowel mesentery up to a location just proximal to where the active Crohn's is. Approximately 12 cm of small intestine was removed with the colon back to where became more normal intestine. Right colon was mobilized along the white line of Toldt all the way up in the hepatic flexure was fully mobilized. Circumferential d issection was performed around the proximal transverse colon. The greater omentum was taken off the transverse colon in the right upper quadrant. Robot stapler was fired across the intestine just prox imal to the area of disease. Reloads were fired across the proximal transverse colon. The right col on specimen was left in the right abdomen. The proximal intestine was brought up in an isoperistalti c antimesenteric fashion with the transverse colon. Holding stitch of Vicryl was placed on the end o f the colon specimen to the more proximal small intestine to hold the two together. Enterotomy was m lois on both on the surface of the intestine and colon and the anastomosis performed using the robot s tapler. The common enterotomy was closed using running 2-0 Vicryl in two layers. The ICG green dye was given intravenously and this revealed there to be no evidence of ischemia to the staple line or a nastomosis. There was no ongoing bleeding. GraNee needle 0 Vicryl tie was used to close the fascial defect at the robot stapler port. All port sites were removed under direct visualization without bl eeding. Muscle splitting incision was made at McBurney's point in the right lower quadrant and the A livan wound retractor was placed. The right colon and intestine was brought out through this incisio n, sent to path for final diagnosis. The fascia was closed anterior and posteriorly using running PD S suture. Subcutaneous wound was irrigated using sterile saline. A 3-0 Vicryl was used to close the subcutaneous tissues. Skin was closed using running 4-0 Monocryl and Dermabond. The patient was en route to recovery in stable condition. All instrument counts, needle counts, lap counts were correc t.
[2017-06-08] MEDS: Clindamycin/D5W 900 MG in Premix Bag 1 BAG IVPB SCH ×2 (00:59→07:11)
[2017-06-08] MEDS: Acetaminophen 1,000 MG in Premix Bag 1 BAG IVPB SCH ×3 (00:59→12:57)
[2017-06-08] MEDS: Sodium Chloride 0.9% 1,000 ML IV SCH ×2 (01:03→16:33)
[2017-06-08 05:42] LABS: #Lymphocytes 2.1 thou/uL (1.20-3.40); #Monocytes 0.7 thou/uL (0.11-0.59); #Neutrophils 7.7 thou/uL (1.40-6.50); %Basophils 0.1 % (0.0-1.0); %Eosinophils 0.2 % (0.0-10.0); %Lymphocytes 19.9 % (21.0-51.0); %Monocytes 6.5 % (0.0-10.0); %Neutrophils 73.2 % (42.0-75.0); Hemoglobin 12.7 g/dL (12.0-16.0); Mean Corpuscular HGB CONC 33.1 g/dL (32.0-36.0); Mean Corpuscular Hemoglobin 29.7 pg (27.0-31.0); Mean Corpuscular Volume 89.8 fl (81.0-99.0); Mean Platelet Volume 7.4 fL (7.4-10.4); Platelet Count 299 thou/uL (130-400); RBC Distribution Width 14.2 % (11.5-14.5); Red Blood Cell (RBC) Count 4.27 mill/uL (4.20-5.40); White Blood Cell (WBC) Count 10.6 thou/uL (4.8-10.8)
[2017-06-08 06:07] LABS: Anion Gap 14 mmol/L (10-20); BUN (Urea Nitrogen) 9 mg/dL (9.8-20.1); Calc. Creatinine Clearance 130 mL/min (70-130); Carbon Dioxide 20 mmol/L (22-29); Chloride 107 mmol/L (98-107); Estimated GFR-MDRD 85; Glucose 93 mg/dL (70-105); Potassium 3.9 mmol/L (3.5-5.1); Sodium 137 mmol/L (136-145)
[2017-06-08] MEDS: Levothyroxine Sodium 100 MCG TAB PO SCH (07:11)
[2017-06-08] MEDS: Losartan 25 MG TAB PO SCH ×2 (08:50→21:53)
[2017-06-08] MEDS: Amlodipine 5 MG TAB PO SCH (08:50)
[2017-06-08] MEDS: Famotidine 20 MG TAB PO SCH ×2 (08:51→21:53)
[2017-06-08] MEDS: Famotidine 40 MG/4 ML VIAL SLOW IVP SCH ×2 (09:04→20:07)
[2017-06-08] MEDS ORDERED: traMADol HCl 50 MG TAB PO PRN ×2 (10:32)
[2017-06-08] MEDS ORDERED: HYDROcodone/Acetaminophen 10/325 mg Tablet PO PRN (10:32)
[2017-06-08] MEDS: Ketorolac Tromethamine 30 MG/ML VIAL IVP PRN ×2 (10:35→21:53)
--- NOTE | 2017-06-08 10:36 | PDOC.GSPN ---
Surgery Progress Note: Subj - Subjective Patient reports: tolerating liquids well (No nausea) Surgery Progress Note: Obj - Vital signs Vital signs: Vital Signs - Most Recent Temp Pulse Resp BP Pulse Ox 97.7 F 69 18 162/89 H 94 L 06/08/17 08:10 06/08/17 08:50 06/08/17 08:10 06/08/17 08:10 06/08/17 08:10 - Physical Exam General: no distress Abdomen: soft, non tender, nondistended Wound: healing well Surgery Progress Note: Results - Labs Result Diagrams: 06/08/17 05:19 06/08/17 05:19 Lab results: Laboratory Results - last 24 hr 06/08/17 06/08/17 05:19 05:19 WBC 10.6 RBC 4.27 Hgb 12.7 Hct 38.3 MCV 89.8 MCH 29.7 MCHC 33.1 RDW 14.2 Plt Count 299 MPV 7.4 Neutrophils % 73.2 Lymphocytes % 19.9 L Monocytes % 6.5 Eosinophils % 0.2 Basophils % 0.1 Neutrophils # 7.7 H Lymphocytes # 2.1 Monocytes # 0.7 H Eosinophils # 0.0 Basophils # 0.0 Sodium 137 Potassium 3.9 Chloride 107 Carbon Dioxide 20 L Anion Gap 14 BUN 9 L Creatinine 0.71 Estimated GFR (MDRD) 85 Glucose 93 Calcium 9.0 Surgery Progress Note: A/P - Problem (1) Crohn's disease involving terminal ileum Current Visit: Yes Code(s): K50.90 - CROHN'S DISEASE, UNSPECIFIED, WITHOUT COMPLICATIONS Status: Acute Assessment and Plan: advance to full liquids. Start oral pain control.
[2017-06-08] MEDS: Enoxaparin Sodium 40 MG/0.4 ML SYRINGE SC SCH (21:52)
[2017-06-08] MEDS: guaiFENesin ER 600 MG TAB PO PRN (21:58)
[2017-06-09] MEDS: Levothyroxine Sodium 100 MCG TAB PO SCH (06:54)
[2017-06-09] MEDS: Ketorolac Tromethamine 30 MG/ML VIAL IVP PRN (06:54)
[2017-06-09] MEDS: Losartan 25 MG TAB PO SCH (08:55)
[2017-06-09] MEDS: Amlodipine 5 MG TAB PO SCH (08:55)
[2017-06-09] MEDS: guaiFENesin ER 600 MG TAB PO PRN (08:55)
[2017-06-09] MEDS: Famotidine 20 MG TAB PO SCH (08:55)
[2017-06-09 08:56] VITALS: BP 134/84
[2017-06-09] MEDS: Famotidine 40 MG/4 ML VIAL SLOW IVP SCH (08:56)
[2017-06-09 10:02] VITALS: TEMP 98.8
--- NOTE | 2017-06-09 12:53 | DIS ---
ADMISSION DIAGNOSES: Crohn's disease with ileocecal stricture. DISCHARGE DIAGNOSIS: Crohn's disease with ileocecal stricture. PROCEDURES: Laparoscopic da Francisco J right colectomy by Dr. Chavis without complication. CONDITION AT DISCHARGE: Improved. STAFF: Dr. Dav Chavis. HOSPITAL COURSE: The patient was ambulatory on a clear liquid diet immediately postop. On postop da y #1, she was doing well, advanced to full liquids. She had a bowel movement on postop day #1. On p ostop day #2, she is being discharged to home. Prescriptions for [place] and Zofran. All other medici gallo as before surgery. She will follow up in my office in 2 weeks. She is going to do full liquids for another day or two a nd then a casserole diet and then diet as tolerated after that.
== END 2017-06-09 09:39 | disposition home or self-care (01) | DRG 330 ==
LOC: SURG A 06-07 10:04
PROVIDERS: ADMIT Surgery; ATTEND Surgery
PROC: 0DTF4ZZ Resection of Right Large Intestine, Percutaneous Endoscopic Approach (ICD-10-PCS; principal; 2017-06-07)
DX: K50.012 Crohn's disease of small intestine with intestinal obstruction (principal); J45.909 Unspecified asthma, uncomplicated; M19.90 Unspecified osteoarthritis, unspecified site; E66.9 Obesity, unspecified; G47.30 Sleep apnea, unspecified; H54.40 Blindness, one eye, unspecified eye; Z88.0 Allergy status to penicillin; Z88.8 Allergy status to other drugs, medicaments and biological substances; Z79.51 Long term (current) use of inhaled steroids; Z79.899 Other long term (current) drug therapy; Z90.49 Acquired absence of other specified parts of digestive tract; Z68.37 Body mass index [BMI] 37.0-37.9, adult
CPT/HCPCS: 36415; 36416; 80048; 85025; 88307; J0131; J0670; J1100; J1650; J1720; J1885; J1956; J2001; J2250; J2704; J3010; J3490

== ENCOUNTER 2017-06-02 16:05 | Outpatient (CLI) | payer OTHER ==
[2017-06-02 17:02] LABS: Hemoglobin A1c 5.6 % (4.0-6.0)
[2017-06-02 17:10] LABS: #Basophils 0.1 thou/uL (0.0-0.2); #Eosinphils 0.5 thou/uL (0.0-0.7); #Lymphocytes 3.8 thou/uL (1.20-3.40); #Monocytes 0.8 thou/uL (0.11-0.59); #Neutrophils 6.1 thou/uL (1.40-6.50); %Basophils 0.8 % (0.0-1.0); %Eosinophils 4.6 % (0.0-10.0); %Lymphocytes 33.7 % (21.0-51.0); %Monocytes 7.1 % (0.0-10.0); %Neutrophils 53.8 % (42.0-75.0); Hemoglobin 15.1 g/dL (12.0-16.0); Mean Corpuscular HGB CONC 32.6 g/dL (32.0-36.0); Mean Corpuscular Hemoglobin 29.3 pg (27.0-31.0); Mean Corpuscular Volume 89.9 fl (81.0-99.0); Mean Platelet Volume 7.4 fL (7.4-10.4); Platelet Count 406 thou/uL (130-400); RBC Distribution Width 14.3 % (11.5-14.5); Red Blood Cell (RBC) Count 5.16 mill/uL (4.20-5.40); White Blood Cell (WBC) Count 11.3 thou/uL (4.8-10.8)
[2017-06-02 17:38] LABS: Anion Gap 15 mmol/L (10-20); BUN (Urea Nitrogen) 8 mg/dL (9.8-20.1); Calc. Creatinine Clearance 0 mL/min (70-130); Calcium 10.3 mg/dL (7.8-10.44); Carbon Dioxide 25 mmol/L (22-29); Chloride 102 mmol/L (98-107); Estimated GFR-MDRD 77; Glucose 110 mg/dL (70-105); Potassium 4.1 mmol/L (3.5-5.1); Sodium 138 mmol/L (136-145)
--- NOTE | 2017-06-03 16:17 | EKG ---
Test Reason : Blood Pressure : / mmHG Vent. Rate : 074 BPM Atrial Rate : 074 BPM P-R Int : 154 ms QRS Dur : 074 ms QT Int : 372 ms P-R-T Axes : 032 -01 -06 degrees QTc Int : 412 ms Poor data quality, interpretation may be adversely affected Sinus rhythm with Premature atrial complexes Moderate voltage criteria for LVH, may be normal variant T wave abnormality, consider inferior ischemia Abnormal ECG Confirmed by STEF CARBALLO ([id number]) on 06/03/2017 4:17:12 PM Referred By: GIOVANNA Confirmed By:STEF CARBALLO
== END 2017-06-02 16:06 | disposition home or self-care (01) ==
LOC: LABBT 16:05
PROVIDERS: ATTEND Surgery
DX: Z01.818 Encounter for other preprocedural examination (principal); K50.90 Crohn's disease, unspecified, without complications; R94.31 Abnormal electrocardiogram [ECG] [EKG]
CPT/HCPCS: 80048; 83036; 85025; 93005; 93010

== ENCOUNTER 2017-12-02 16:34 | Outpatient (CLI) | payer OTHER ==
--- NOTE | 2017-12-02 18:08 | RAD ---
RIGHT KNEE 2 VIEWS: Date: 12/02/17 HISTORY: Primary osteoarthritis. COMPARISON: None. FINDINGS: There is severe medial and lateral compartment joint space narrowing. Mild genu varus. Large joint ef fusion. Subcortical cyst of the medial compartment. Large osteophyte formation. IMPRESSION: 1. Severe degenerative changes. 2. Moderate joint effusion, likely degenerative in nature. POS: C
== END 2017-12-02 16:35 | disposition home or self-care (01) ==
LOC: BICRAD 16:34
PROVIDERS: ATTEND Internal Medicine Rheumatology
DX: M17.11 Unilateral primary osteoarthritis, right knee (principal); M25.461 Effusion, right knee

== ENCOUNTER 2020-11-15 12:59 | Outpatient (CLI) | payer BC | END 2020-11-15 13:00 | disposition home or self-care (01) | LOC: BICRAD 12:59 | PROVIDERS: ATTEND Internal Medicine Rheumatology | DX: M05.10 Rheumatoid lung disease with rheumatoid arthritis of unspecified site (principal); J98.6 Disorders of diaphragm | CPT/HCPCS: 71046 ==

== ENCOUNTER 2020-11-28 14:38 | Outpatient (CLI) | payer BC | END 2020-11-28 14:39 | disposition home or self-care (01) | LOC: BICCT 14:38 | PROVIDERS: ATTEND Internal Medicine Rheumatology | DX: M05.10 Rheumatoid lung disease with rheumatoid arthritis of unspecified site (principal); J98.4 Other disorders of lung | CPT/HCPCS: 71250 ==

== ENCOUNTER 2020-12-05 12:46 | Outpatient (CLI) | payer BC | END 2020-12-05 12:47 | disposition home or self-care (01) | LOC: BICMAMMO 12:46 | PROVIDERS: ATTEND Internal Medicine | DX: Z12.31 Encounter for screening mammogram for malignant neoplasm of breast (principal); M81.0 Age-related osteoporosis without current pathological fracture; Z80.3 Family history of malignant neoplasm of breast; M85.89 Other specified disorders of bone density and structure, multiple sites | CPT/HCPCS: 77063; 77067; 77080 ==

== ENCOUNTER 2021-08-28 08:15 | Day surgery (SDC) | payer BC ==
[2021-08-26 10:57] VITALS: BMI 47.2
[2021-08-28] MEDS ORDERED: Lidocaine 1% PF 5 ML VIAL ONE (11:00)
[2021-08-28] MEDS ORDERED: PROPOFOL 200 MG/20 ML VIAL ONE (11:00)
== END 2021-08-28 12:44 | disposition home or self-care (01) ==
LOC: SDC 08:15
PROVIDERS: ATTEND Internal Medicine Gastroenterology
PROC: 0DBE8ZX Excision of Large Intestine, Via Natural or Artificial Opening Endoscopic, Diagnostic (ICD-10-PCS; principal; 2021-08-28)
DX: K50.00 Crohn's disease of small intestine without complications (principal); D64.9 Anemia, unspecified; E05.90 Thyrotoxicosis, unspecified without thyrotoxic crisis or storm; Z79.890 Hormone replacement therapy; Z79.899 Other long term (current) drug therapy; Z88.0 Allergy status to penicillin; Z88.8 Allergy status to other drugs, medicaments and biological substances
CPT/HCPCS: 88305; J2704